=== PATIENT | female | born 1995 | race Hispanic/Latino ===

== ENCOUNTER 2021-02-23 22:40 | Emergency (ER) | payer OTHER ==
[2021-02-24 00:13] VITALS: BP 120/68
--- NOTE | 2021-02-24 01:00 | Emergency Department Report ---
ED Female HPI - General Chief complaint: Vaginal Bleeding Stated complaint: ABNORMAL VAGINAL BLEEDING,LOWER ABD PAIN Source: patient Mode of arrival: Ambulatory Limitations: No Limitations - History of Present Illness Initial comments: Patient is a A4 25-year-old white female with no past medical history presents to the ED with complaint of acute onset persistent suprapubic pain and heavy vaginal bleeding for the last 2 weeks. Patient states that in the last 5 days she noticed that there were large blood clots with heavy bleeding. Patient states that her menstrual cycles usually last for 5 days and that they were never heavy. Patient states that her last sexual intercourse was over 2 months ago and that she is not currently sexually active. Patient states that at the time the sexual intercourse was protected. Patient denies dysuria, urinary frequency and urgency, vaginal discharge, low back pain, chest pain, shortness of breath, diarrhea, nausea and vomiting, fever and chills or low back pain. MD Complaint: vaginal bleeding, pelvic pain (suprapubic), other (Lightheadedness) -: Sudden, week(s) (2) Location: suprapubic, other (vaginal ) Radiation: non-radiating Severity: severe Severity scale (0 -10): 7 Quality: cramping, sharp Consistency: constant Improves with: none Worsens with: menstrual period Are you Now?: No Last Menstrual Period: 02/08/21 EDC: 11/15/21 Associated Symptoms: denies other symptoms, vaginal bleeding, abdominal pain (suprapubic), weakness, other (vaginal irritation). denies: vaginal discharge, nausea/vomiting, fever/chills, headaches, loss of appetite, dysuria, hematuria, rash, seizure, shortness of breath, syncope - Related Data Sexually active: No : 4 Para: 0 A: 4 Previous Rx's Medication Instructions Recorded Last Taken Type Doxycycline Hyclate 100 mg PO Q12H #28 capsule 02/24/21 Unknown Rx Fluconazole [Diflucan TAB] 200 mg PO QDAY #2 tablet 02/24/21 Unknown Rx Ibuprofen [Motrin] 800 mg PO Q8HR PRN #30 tablet 02/24/21 Unknown Rx medroxyPROGESTERone ACETATE 10 mg PO DAILY #14 tablet 02/24/21 Unknown Rx [Provera] Allergies Allergy/AdvReac Type Severity Reaction Status Date / Time No Known Allergies Allergy Verified 02/24/21 00:10 ED Review of Systems ROS: Stated complaint: ABNORMAL VAGINAL BLEEDING,LOWER ABD PAIN Other details as noted in HPI Constitutional: denies: chills, fever Eyes: denies: eye pain, eye discharge, vision change ENT: denies: ear pain, throat pain Respiratory: denies: cough, shortness of breath, wheezing Cardiovascular: denies: chest pain, palpitations Endocrine: no symptoms reported Gastrointestinal: abdominal pain (suprapubic pain). denies: nausea, vomiting, diarrhea Genitourinary: abnormal menses (vaginal bleeding), other (vaginal irritation). denies: urgency, dysuria, frequency, hematuria, discharge Musculoskeletal: denies: back pain, joint swelling, arthralgia Skin: denies: rash, lesions Neurological: denies: headache, weakness, paresthesias Psychiatric: denies: anxiety, depression Hematological/Lymphatic: denies: easy bleeding, easy bruising ED Past Medical Hx - Past Medical History Previous Medical History?: No - Medications Home Medications: Home Medications Medication Instructions Recorded Confirmed Last Taken Type Doxycycline Hyclate 100 mg PO Q12H #28 capsule 02/24/21 Unknown Rx Fluconazole [Diflucan TAB] 200 mg PO QDAY #2 tablet 02/24/21 Unknown Rx Ibuprofen [Motrin] 800 mg PO Q8HR PRN #30 tablet 02/24/21 Unknown Rx medroxyPROGESTERone ACETATE 10 mg PO DAILY #14 tablet 02/24/21 Unknown Rx [Provera] ED Physical Exam - General Limitations: No Limitations General appearance: alert, in no apparent distress - Head Head exam: Present: atraumatic, normocephalic, normal inspection - Eye Eye exam: Present: normal appearance, PERRL, EOMI Pupils: Present: normal accommodation - ENT ENT exam: Present: normal exam, normal orophraynx, mucous membranes moist, TM's normal bilaterally, normal external ear exam - Neck Neck exam: Present: normal inspection, full ROM - Respiratory Respiratory exam: Present: normal lung sounds bilaterally. Absent: respiratory distress, wheezes, rales, rhonchi, stridor, chest wall tenderness, accessory muscle use, decreased breath sounds, prolonged expiratory - Cardiovascular Cardiovascular Exam: Present: regular rate, normal rhythm, normal heart sounds. Absent: systolic murmur, diastolic murmur, rubs, gallop - GI/Abdominal GI/Abdominal exam: Present: soft, tenderness (Palpable mild suprapubic tenderness), normal bowel sounds. Absent: guarding, rebound, hyperactive bowel sounds, hypoactive bowel sounds, organomegaly - Bi-manual exam: Present: other (Pelvic exam declined) - Extremities Exam Extremities exam: Present: normal inspection, full ROM, normal capillary refill - Back Exam Back exam: Present: normal inspection, full ROM. Absent: tenderness, CVA tenderness (R), CVA tenderness (L), muscle spasm, paraspinal tenderness, vertebral tenderness - Neurological Exam Neurological exam: Present: alert, oriented X3, CN II-XII intact, normal gait, reflexes normal - Psychiatric Psychiatric exam: Present: normal affect, normal mood - Skin Skin exam: Present: warm, dry, intact, normal color. Absent: rash ED Course Vital Signs 02/24/21 00:11 Temperature 98.8 F Pulse Rate 60 Respiratory 20 Rate Blood Pressure 120/68 O2 Sat by Pulse 100 Oximetry ED Medical Decision Making - Lab Data Result diagrams: 02/24/21 00:50 02/24/21 00:50 - Medical Decision Making This is a A4 25-year-old white female with no past medical history presents to the ED with complaint of acute onset persistent suprapubic pain and heavy vaginal bleeding for the last 2 weeks. Patient states that in the last 5 days she noticed that there were large blood clots with heavy bleeding. Patient states that her menstrual cycles usually last for 5 days and that they were never heavy. Patient states that her last sexual intercourse was over 2 months ago and that she is not currently sexually active. Patient states that at the time the sexual intercourse was protected. In the ED, patient is alert and oriented x3 and is not in any distress with normal vital signs. Lab test r esults were reviewed and are all nonactionable. Patient was treated in the ED with medroxyprogesterone acetate 10 mg tablet, also treated for pain and empirically treated for suspected STD with Rocephin 1 g intramuscular injection. Patient was discharged home on a prescription of doxycycline 100 mg every 12 hours for 14 days. Patient was advised to follow-up with her [employer] physician in 7 to 10 days for reevaluation or return to the ED immediately if symptoms get worse. - Differential Diagnosis UTI; dysmenorrhea; metrorrhagia; STD; bacterial vaginosis; Critical care attestation.: If time is entered above; I have spent that time in minutes in the direct care of this critically ill patient, excluding procedure time. ED Disposition Clinical Impression: Dysfunctional uterine hemorrhage, Severe dysmenorrhea, Acute urinary tract infection, Possible exposure to STD Disposition: 01 HOME / SELF CARE / HOMELESS Is pt being admited?: No Does the pt Need Aspirin: No Condition: Stable Instructions: Metrorrhagia, [id number], Urinary Tract Infection, Adult, [id number], Dysmenorrhea, Safe Sex, Menorrhagia, [id number], Abnormal Uterine Bleeding, [id number] Additional Instructions: All lab test results were reviewed and are all nonactionable except for urinalysis that showed significant urinary tract infection. Given the risk of exposure to STD, you are being treated also empirically for suspected STD. Therefore take medication with food, drink plenty of fluids and follow-up with your [employer] physician in 7 to 10 days for reevaluation. Return to the ED immediately if symptoms get worse. Prescriptions: Fluconazole [Diflucan TAB] 200 mg PO QDAY #2 tablet Doxycycline Hyclate 100 mg PO Q12H #28 capsule Ibuprofen [Motrin] 800 mg PO Q8HR PRN #30 tablet PRN Reason: Pain , Severe (7-10) medroxyPROGESTERone ACETATE [Provera] 10 mg PO DAILY #14 tablet Referrals: GUY URBAN MD [Staff Physician] - 3-5 Days Forms: Work/School Release Form(ED) Time of Disposition: 01:00 Print Language: [id number]
[2021-02-24 01:12] LABS: Basophils # (Auto) 0.1 K/mm3 (0.0-0.1); Basophils % (Auto) 0.7 % (0.0-1.8); Eosinophils # (Auto) 0.3 K/mm3 (0.0-0.4); Eosinophils % (Auto) 3.8 % (0.0-4.3); Hematocrit 36.8 % (30.3-42.9); Hemoglobin 12.4 gm/dl (10.1-14.3); Lymphocytes # (Auto) 2.4 K/mm3 (1.2-5.4); Lymphocytes % (Auto) 30.9 % (13.4-35.0); Mean Corpuscular HGB Conc 34 % (30-34); Mean Corpuscular Volume 84 fl (79-97); Monocytes # (Auto) 0.5 K/mm3 (0.0-0.8); Monocytes % (Auto) 6.4 % (0.0-7.3); Platelet Count 206 K/mm3 (140-440); Red Cell Distribution Width 15.6 % (13.2-15.2)
[2021-02-24 01:22] LABS: Alanine Aminotransferase 12 units/L (7-56); Albumin 4.6 g/dL (3.9-5); Blood Urea Nitrogen 14 mg/dL (7-17); Calcium 9.6 mg/dL (8.4-10.2); Hemolysis Index 1
[2021-02-24 01:26] LABS: BUN/Creatinine Ratio 23
[2021-02-24 01:55] LABS: Bilirubin,Urine NEG (Negative); Blood,Urine MOD (Negative); Color,Urine Yellow (Yellow); Mucus,Urine FEW /HPF; Protein,Urine <15 mg/dL mg/dL (Negative); Urobilinogen,Urine < 2.0 mg/dL (<2.0)
[2021-02-24] MEDS ORDERED: ACETAMINOPHEN 500 MG TAB PO ONE (02:14)
[2021-02-24] MEDS ORDERED: IBUPROFEN 600 MG TAB PO ONE (02:15)
[2021-02-24] MEDS ORDERED: medroxyPROGESTERone ACETATE 5 MG TAB PO SCH (03:00)
[2021-02-24] MEDS ORDERED: cephALEXin 500 MG CAP PO ONE (03:32)
[2021-02-24] MEDS ORDERED: LIDOCAINE-MPF (1%) 10 MG/1 ML VIAL 5 ML INFILTRATI ONE (04:00)
== END 2021-02-24 05:10 | disposition home or self-care (01) ==
LOC: ED 22:40
DX: N93.8 Other specified abnormal uterine and vaginal bleeding (principal); N94.6 Dysmenorrhea, unspecified; N39.0 Urinary tract infection, site not specified; Z20.2 Contact with and (suspected) exposure to infections with a predominantly sexual mode of transmission
CPT/HCPCS: 36415; 80053; 81001; 84703; 85025; 87086; 96372; 99283; J0696; 99284